=== PATIENT | male | born 1950 | race Caucasian/White ===

== ENCOUNTER 2018-02-03 13:00 | Day surgery (SDC) | payer MEDICARE, OTHER ==
[~2018-02-03] VITALS: Ht 182.9 cm; Wt 89.6 kg
[2018-02-03] VITALS (7 sets, daily range): BP systolic 136–162; BP diastolic 73–91; PULSE 51–65; TEMP 97–97.8
== END 2018-02-03 20:30 | disposition home or self-care (01) ==
LOC: SDCO 13:00 → SURG 17:41 → SDCO 20:30
DX: N21.0 Calculus in bladder (principal); E78.00 Pure hypercholesterolemia, unspecified; J30.1 Allergic rhinitis due to pollen; Z83.3 Family history of diabetes mellitus; Z80.3 Family history of malignant neoplasm of breast; Z82.49 Family history of ischemic heart disease and other diseases of the circulatory system; Z80.41 Family history of malignant neoplasm of ovary; Z80.8 Family history of malignant neoplasm of other organs or systems
CPT/HCPCS: C1769; J0690; J1100; J2405; J2704; J3010; J7120; Q9967